=== PATIENT | female | born 1970 | race Hispanic/Latino ===

== ENCOUNTER 2020-09-18 06:52 | Outpatient (CLI) | payer OTHER ==
[2020-09-18 14:23] LABS: Hemoglobin 11.9 g/dL (12.0-16.0); Mean Corpuscular HGB CONC 32.1 G/DL (32.0-36.0); Mean Corpuscular Hemoglobin 29.2 PG (27.0-33.0); Mean Corpuscular Volume 90.9 fl (80.0-100.0); Mean Platelet Volume 9.3 fl (7.4-10.4); Platelet Count 414 10x3/uL (130-400); RBC Distribution Width 15.1 % (11.5-14.5); Red Blood Cell (RBC) Count 4.08 10x6/uL (3.90-5.20); White Blood Cell (WBC) Count 5.1 10x3/uL (4.5-11.0)
[2020-09-18 14:48] LABS: Anion Gap 15 mmol/L (10-20); BUN (Urea Nitrogen) 13 mg/dL (7.0-18.7); Calc. Creatinine Clearance 0 mL/min (70-130); Calcium 8.2 mg/dL (7.8-10.44); Carbon Dioxide 24 mmol/L (22-29); Chloride 107 mmol/L (98-107); Estimated GFR-MDRD 88; Glucose 93 mg/dL (70-105); Potassium 4.2 mmol/L (3.5-5.1); Sodium 142 mmol/L (136-145)
[2020-09-19 14:44] LABS: SARS-CoV-2 MS2 Positive; SARS-CoV-2 N Gene Negative; SARS-CoV-2 S Gene Negative; SARS-CoV-2 by NAA Not Detected (NotDetected); SARS-CoV-2 orf1ab Negative
== END 2020-09-18 06:53 | disposition home or self-care (01) ==
LOC: LABBT 06:52
PROVIDERS: ATTEND Neurological Surgery
DX: Z01.818 Encounter for other preprocedural examination (principal); M54.16 Radiculopathy, lumbar region; Z20.828 Contact with and (suspected) exposure to other viral communicable diseases
CPT/HCPCS: 80048; 85027; 87635; 93005; 93010; U0003

== ENCOUNTER 2020-09-23 05:27 | Observation (INO) | payer OTHER ==
[2020-09-23] MEDS ORDERED: Scopolamine 1.5 mg/72 hour Patch ONE (06:58)
[2020-09-23] MEDS ORDERED: Famotidine/PF 20 mg/2ml Vial ONE (06:58)
[2020-09-23] MEDS ORDERED: Promethazine HCl 25 MG/ML VIAL ONE (07:06)
[2020-09-23] MEDS ORDERED: Fentanyl 250 MCG/5 ML VIAL ONE (07:06)
[2020-09-23] MEDS ORDERED: Midazolam HCl 2 mg/2 ml Vial ONE (07:08)
[2020-09-23] MEDS ORDERED: SUGAMMADEX SODIUM 200 MG/2 ML VIAL ONE (08:32)
--- NOTE | 2020-09-23 09:05 | OP ---
DATE OF PROCEDURE: 09/23/2020 REPAIR SERVICE CLERK: Maria C Gomes PA-C PROCEDURES PERFORMED: L4-L5 and L5-S1 decompression, left L4-L5 and L5-S1 laminectomy, facetectomy, foraminotomy, diskectomy, interbody arthrodesis, intervertebral biomechanical device, local morselized autograft, demineralized bone matrix, posterolateral arthrodesis, and pedicle screw instrumentation L4 through S1. DESCRIPTION OF PROCEDURE: The patient was brought to the operating room and intubated. She was rolled in a prone position on gel-filled chest rolls. The previous incision was reopened and L4 through S1 were identified and exposed and confirmed by x-ray. She had extensive prior surgery bilaterally. On the right L5-S1, CSF was emanating from the region of prior surgery and scar tissue. After complete exposure, we performed left L5-S1 and left L4-L5 laminectomy, facetectomy, foraminotomy, and diskectomy, completely decompressing the neural elements. The disks themselves were completely removed and bony endplates decorticated for the purpose of arthrodesis. An appropriate-sized intervertebral biomechanical PEEK device was brought into the field. It was filled with demineralized bone matrix, local morselized autograft, and tapped in place securely at L4-L5 and L5-S1. Next, pedicle screws were placed at left L4, left L5, and left S1 using lateral fluoroscopic guidance. The rosenda was then secured between the screws, connected by nuts, which were final tightened. The wound was then extensively irrigated. MAC hemostasis was secured. A combination of demineralized bone matrix and local morselized autograft were laid over the lamina and posterolateral surfaces for the purpose of arthrodesis. A DuraSeal fibrin sealant was laid over the region of the CSF emanation. Vancomycin powder was applied and the wound was then closed in anatomic layers. Job ID: [id number]
[2020-09-23] MEDS ORDERED: Fentanyl 100 MCG/2 ML VIAL ONE ×2 (09:25→10:19)
[2020-09-23] MEDS ORDERED: Non-Formulary Medication 1 EACH PO PRN (09:43)
[2020-09-23] MEDS ORDERED: Ondansetron HCl/PF 4 MG/2 ML Vial IVP PRN (09:45)
[2020-09-23] MEDS ORDERED: Promethazine HCl 25 MG/ML VIAL IM/IV PRN (09:45)
[2020-09-23] MEDS ORDERED: Lidocaine 1% PF 5 ML VIAL ONE (11:30)
[2020-09-23] MEDS ORDERED: Dexamethasone 20 MG/5 ML VIAL ONE (11:30)
[2020-09-23] MEDS ORDERED: Ondansetron PF 4 MG/2 ML Vial ONE (11:30)
[2020-09-23] MEDS ORDERED: Rocuronium Bromide 10 MG/ML (10ML VIAL) ONE (11:30)
[2020-09-23] MEDS ORDERED: Metoclopramide HCl 10 MG/2 ML VIAL ONE (11:30)
[2020-09-23] MEDS ORDERED: EPHEDRINE 25 MG/5 ML SYRINGE ONE (11:30)
[2020-09-23] MEDS ORDERED: PROPOFOL 200 MG/20 ML VIAL ONE (11:30)
[2020-09-23] MEDS ORDERED: Ondansetron PF 4 MG/2 ML Vial IM PRN (12:40)
[2020-09-23] MEDS ORDERED: HYDROcodone/Acetaminophen 10/325 mg Tablet PO PRN (12:45)
[2020-09-23] MEDS ORDERED: diphenhydrAMINE 50 MG/ML VIAL IVP PRN (12:45)
[2020-09-23] MEDS ORDERED: Promethazine HCl 12.5 MG SUPP PR PRN (12:45)
[2020-09-23] MEDS ORDERED: Milk Of Magnesia 30 ML UDCUP PO PRN (12:45)
[2020-09-23] MEDS ORDERED: Mag-Al 1200 mg/1200 mg/30 ML UDCUP PO PRN (12:45)
[2020-09-23] MEDS ORDERED: Morphine 2 MG/ML VIAL SLOW IVP SCH (12:45)
[2020-09-23] MEDS ORDERED: diphenhydrAMINE 25 MG CAP PO PRN (12:45)
[2020-09-23] MEDS ORDERED: Morphine 2 MG/ML VIAL SLOW IVP PRN (12:45)
[2020-09-23] MEDS ORDERED: Promethazine HCl 25 MG/ML VIAL IM PRN (12:45)
[2020-09-23] MEDS ORDERED: Promethazine 25 MG TAB PO PRN (12:45)
[2020-09-23] MEDS ORDERED: traMADol HCl 50 MG TAB PO PRN (12:45)
[2020-09-23] MEDS: Sodium Chloride 0.9% 1,000 ML IV SCH (12:49)
[2020-09-23] MEDS: HYDROcodone/Acetaminophen 10/325 mg Tablet PO PRN ×3 (13:47→21:53)
[2020-09-23] MEDS: CEFAZOLIN 2 GM in Premix Bag 1 BAG IVPB SCH (16:14)
[2020-09-23] MEDS: tiZANidine HCl 4 MG TAB PO PRN ×2 (16:14→21:53)
[2020-09-23 18:25] VITALS: BMI 26.2
[2020-09-23] MEDS: traMADol HCl 50 MG TAB PO PRN (19:53)
[2020-09-24] MEDS: traMADol HCl 50 MG TAB PO PRN ×2 (00:56→07:51)
[2020-09-24] MEDS: CEFAZOLIN 2 GM in Premix Bag 1 BAG IVPB SCH (00:58)
[2020-09-24] MEDS: Sodium Chloride 0.9% 1,000 ML IV SCH (04:56)
[2020-09-24] MEDS: HYDROcodone/Acetaminophen 10/325 mg Tablet PO PRN ×2 (05:33→09:40)
[2020-09-24] MEDS: tiZANidine HCl 4 MG TAB PO PRN ×2 (05:33→11:15)
--- NOTE | 2020-09-24 07:31 | DIS ---
DATE OF ADMISSION: 09/23/2020 DATE OF DISCHARGE: 09/24/2020 PROCEDURE: L4-S1 TLIF. DISCHARGE SUMMARY: The patient is a 49-year-old female, recently evaluated in our office for ongoing back pain. She did have prior decompressive surgery from L4 to S1 years ago. She was found to have significant degenerative disk disease at both L4-5 and L5-S1. She underwent L4-S1 TLIF on 09/23/2020. Following the surgery, she was transitioned to the Med/Surg floor, where her pain has been well controlled with p.o. medications, she is tolerating regular diet, and she is voiding appropriately. She would like to go home today and feels that this is appropriate. She has been provided with scripts for [place] by her pain management doctor. I have also provided scripts for Zanaflex and Keflex. We will follow up with her in 2 weeks. Job ID: [id number]
[2020-09-24 08:17] VITALS: BP 91/54; TEMP 98.4
== END 2020-09-24 11:51 | disposition home or self-care (01) ==
LOC: SDC 05:27 → SURG B 09:12
PROVIDERS: ADMIT Neurological Surgery; ATTEND Neurological Surgery
PROC: 0SG10AJ Fusion of 2 or more Lumbar Vertebral Joints with Interbody Fusion Device, Posterior Approach, Anterior Column, Open Approach (ICD-10-PCS; principal; 2020-09-23)
PROC: 0SG107J Fusion of 2 or more Lumbar Vertebral Joints with Autologous Tissue Substitute, Posterior Approach, Anterior Column, Open Approach (ICD-10-PCS; 2020-09-23)
DX: M54.16 Radiculopathy, lumbar region (principal); I10 Essential (primary) hypertension; Z79.899 Other long term (current) drug therapy; Z87.891 Personal history of nicotine dependence
CPT/HCPCS: 76000; 96365; 96375; 96376; C1713; C1768; G0378; J0690; J1100; J2250; J2270; J2405; J2550; J2704; J2765; J3010; J3370; S0028

== ENCOUNTER 2020-10-08 12:45 | Outpatient (CLI) | payer OTHER ==
--- NOTE | 2020-10-08 13:04 | RAD ---
EXAM: 2 views of the lumbosacral spine HISTORY: Low back pain status post surgery 2 weeks ago COMPARISON: None FINDINGS: 2 views of the lumbosacral spine shows the patient is status post posterior fusion of L4-S1 with left-sided pedicle screws. Disc spacers are seen in the L4/5 and L5/S1 disc spaces. No perihardware lucency is seen. The vertebral bodies demonstrate normal alignment without subluxation. Posterior skin josiah are seen. The sacroiliac joints are unremarkable. Cholecystectomy clips are seen. IMPRESSION: Postsurgical changes of the lumbar spine without evidence of complication.
== END 2020-10-08 12:46 | disposition home or self-care (01) ==
LOC: TBSIIMAG 12:45
PROVIDERS: ATTEND Neurological Surgery
DX: M54.16 Radiculopathy, lumbar region (principal); Z98.1 Arthrodesis status
CPT/HCPCS: 72100